=== PATIENT | female | born 1975 | race Caucasian/White ===

== ENCOUNTER 2022-12-09 08:14 | Outpatient (CLI) | payer OTHER, SELFPAY ==
--- NOTE | ~2022-12-09 | MM_ITS ---
EXAMINATION: MM screening dillon BI w twila HISTORY: Screening mammogram. Baseline examination. TECHNIQUE: Craniocaudal and mediolateral oblique 3-D tomosynthesis images were obtained and synthetic 2-D images were generated. CAD analysis was submitted and interpreted. COMPARISON: No prior mammogram is available for comparison at this institution. BREAST PARENCHYMAL COMPOSITION: There are scattered areas of fibroglandular density. FINDINGS: Right breast: Focal asymmetry is suggested in the lower mid right breast. Diagnostic right mammogram is recommended, with ultrasound if required. Left breast: There is no evidence of suspicious mass, calcification, or architectural distortion to s uggest malignancy in the left breast. IMPRESSION: 1. Focal asymmetry in the lower mid right breast 2. Diagnostic right mammogram is recommended, with ultrasound if required BI-RADS Category 0: Incomplete: Needs additional imaging evaluation. Reviewed, dictated and finalized at location A. GENCY ROOM TECH
--- NOTE | 2022-12-09 08:22 | EST_ITS ---
Patient Info Name: Hilary Almanzar Age: 47 years : 1975 Gender: Female Ht: 64 in Wt: 166 lbs BSA: 1.87 m2 HR: 60 bpm BP: 100 / 68 mmHg Heart Rhythm: Sinus Rhythm Exam Date: 12/09/2022 8:31 AM Exam Location: [facility] Stress Patient Status: Outpatient Admit Date: 12/09/2022 Staff Ordering Physician: Radha Little Attending Provider: Evan Castle MD Exercise Technologist: Magali Joya CT Exercise Physician: Marcos Nichole DO Exam Type: CA stress test treadmill Study Info Indications R07.9 - Chest pain, unspecified Summary 1. 1. Negative Wilfrid exercise stress test for ischemic ST changes by ECG criteria. 2. 2. Good functional capacity, achieving 11 METs of workload. 3. 3. Appropriate HR response to exercise. 4. 4. Appropriate HR recovery at 1 minute post exercise. 5. 5. No imaging with stress testing. 6. 6. Patient informed of the above results. Protocol: Wilfrid Stress ECG Details Stage: REST Duration (min): 1 min : 18 sec Speed (mph): 0.0 Grade (%): 0 HR (bpm): 65 SBP (mmHg): 100 DBP (mmHg): 68 METS: --- Stage: REST Duration (min): 4 min : 56 sec Speed (mph): 0.0 Grade (%): 0 HR (bpm): 63 SBP (mmHg): 100 DBP (mmHg): 68 METS: --- Stage: STAGE 1 Duration (min): 1 min : 0 sec Speed (mph): 1.7 Grade (%): 10 HR (bpm): 96 SBP (mmHg): 100 DBP (mmHg): 68 METS: --- Stage: STAGE 1 Duration (min): 2 min : 0 sec Speed (mph): 1.7 Grade (%): 10 HR (bpm): 105 SBP (mmHg): 100 DBP (mmHg): 68 METS: --- Stage: STAGE 1 Duration (min): 3 min : 0 sec Speed (mph): 1.7 Grade (%): 10 HR (bpm): 101 SBP (mmHg): 131 DBP (mmHg): 74 METS: --- Stage: STAGE 2 Duration (min): 1 min : 0 sec Speed (mph): 2.5 Grade (%): 12 HR (bpm): 111 SBP (mmHg): 131 DBP (mmHg): 74 METS: --- Stage: STAGE 2 Duration (min): 2 min : 0 sec Speed (mph): 2.5 Grade (%): 12 HR (bpm): 119 SBP (mmHg): 108 DBP (mmHg): 66 METS: --- Stage: STAGE 2 Duration (min): 3 min : 0 sec Speed (mph): 2.5 Grade (%): 12 HR (bpm): 120 SBP (mmHg): 108 DBP (mmHg): 66 METS: --- Stage: STAGE 3 Duration (min): 1 min : 0 sec Speed (mph): 3.4 Grade (%): 14 HR (bpm): 130 SBP (mmHg): 119 DBP (mmHg): 65 METS: --- Stage: STAGE 3 Duration (min): 2 min : 0 sec Speed (mph): 3.4 Grade (%): 14 HR (bpm): 138 SBP (mmHg): 119 DBP (mmHg): 65 METS: --- Stage: STAGE 3 Duration (min): 3 min : 0 sec Speed (mph): 3.4 Grade (%): 14 HR (bpm): 138 SBP (mmHg): 119 DBP (mmHg): 65 METS: --- Stage: STAGE 4 Duration (min): 0 min : 35 sec Speed (mph): 4.2 Grade (%): 16 HR (bpm): 149 SBP (mmHg): 119 DBP (mmHg): 65 METS: --- Stage: RECOVERY Duration (mi
== END 2022-12-09 08:15 | disposition home or self-care (01) ==
PROVIDERS: PCP Internal Medicine; Visit Provider Obstetrics & Gynecology
DX: Z12.31 Encounter for screening mammogram for malignant neoplasm of breast (principal); R07.9 Chest pain, unspecified; R92.8 Other abnormal and inconclusive findings on diagnostic imaging of breast
CPT/HCPCS: 77063; 77067; 93017

== ENCOUNTER 2023-02-01 12:54 | Outpatient (CLI) | payer OTHER, SELFPAY ==
--- NOTE | ~2023-02-01 | MMUS_ITS ---
EXAMINATION: MM diagnostic dillon RT w twila, US breast RT complete HISTORY: Focal asymmetry reported in lower mid right breast on 12/09/2022 screening mammogram examinati on TECHNIQUE: Additional 3-D tomosynthesis images of the right breast were performed and synthetic 2-D i mages were generated. CAD analysis was submitted and interpreted. High resolution complete right farida st ultrasound examination including all 4 quadrants and subareolar area was performed. COMPARISON: 12/09/2022 bilateral screening mammogram FINDINGS: MAMMOGRAPHIC FINDINGS: No suspicious mass or architectural distortion, malignant calcification, skin thickening or retractio n is detected. ULTRASOUND: No suspicious mass or shadowing, cyst or other sylvian sonographic abnormality of the right breast is detected. IMPRESSION: 1. No mammographic evidence of malignancy 2. Routine annual mammographic screening is recommended BI-RADS Category 1: Negative Reviewed, dictated and finalized at location A. IMPRESSION: 1. No mammographic evidence of malignancy 2. Routine annual mammographic screening is recommended BI-RADS Category 1: Negative
== END 2023-02-01 12:55 | disposition home or self-care (01) ==
LOC: ANHIMG 12:55
PROVIDERS: PCP Internal Medicine; Visit Provider Obstetrics & Gynecology
DX: R92.8 Other abnormal and inconclusive findings on diagnostic imaging of breast (principal)
CPT/HCPCS: 76641; 77061; 77065; G0279

== ENCOUNTER 2025-01-19 08:03 | Outpatient (CLI) | payer BC, SELFPAY ==
--- NOTE | ~2025-01-19 | US_ITS ---
Limited Abdominal Sonogram: Real-time sonographic imaging of the right upper quadrant was performed. Clinical History: Abnormal serum enzyme levels Findings: The liver appears echogenic with no evidence of mass lesion or bile duct dilatation. Main portal vein demonstrates normal direction of flow. The gallbladder is well distended, and appears nor mal with no evidence of gallstone or wall thickening. The common bile duct measures 4 mm. The visual ized pancreas, aorta, and IVC are unremarkable. Impression: Diffuse fatty infiltration of liver. Reviewed, dictated and finalized at location M. Impression: Diffuse fatty infiltration of liver.
--- OUTSIDE RECORDS SUMMARY | 2025-01-19 08:06 | XMS_ITS | Data Portability ---
Author Organization [place] - [facility] [email or web address], Main Office Address [address] [place] [address] Assessment Encounter Date Assessment Date Assessment LastModified by Organization Details LastModified Time 01/13/2024 01/13/2024 Pt has no prior diagnosis [email or web address] Not available 01/13/2024 11:53:40 Plan of Treatment Reminders Order Date Submit Date Provider Last Modified By Organization Details Last Modified Time Details Appointments None recorded. Lab lipid panel, serum 2023 024 llalor Not available 4 16:54:55 CMP, serum or plasma 2023 024 llalor Not available 4 16:54:56 glycohemogl obin, total, blood 2023 024 llalor Not available 4 16:54:56 CBC 2023 024 llalor Not available 4 16:54:56 TSH, serum, reflex free T4 2023 024 llalor Not available 4 16:54:56 HbA1c (hemoglobin A1c), blood 2023 024 llalor Not available 4 16:54:56 Referral None recorded. Procedures colonoscopy screening (PROC) 2023 024 [email or web address] 256 Melodie Patterson MD, [address] [place] [address], [address], 4 09:17:27 Surgeries None recorded. Imaging None recorded. Medication Orders None recorded. Patient TargetsNo targets recorded. Patient InstructionsNo instructions recorded. Reason for Referral None Reported. Results Created Date Observation Date Name Description Value Unit Range Abnormal Flag Note LastModifiedBy Organization Detail LastModifiedTime 01/20/20 24 01/20/2024 LIPID PANEL , STAND MABLE cholesterol, total 251 mg/dL <200 high Not Available [address] [address] [place], [address], 01/20/2024 23:42:13 01/20/20 24 01/20/2024 LIPID PANEL , STAND MABLE HDL cholesterol 57 mg/dL > or = 50 normal Not Available [address] [address] [place], [address], 01/20/2024 23:42:13 01/20/20 24 01/20/2024 LIPID PANEL , STAND MABLE triglyceride s 164 mg/dL <150 high Not Available [address], [address], 01/20/2024 23:42:13 01/20/20 24 01/20/2024 LIPID PANEL , STAND MABLE LDL-choleste rol 163 mg/dL _(rosa c) high Refer ence range : <100 Nazanin able range <100 mg/dL for prima ry preve ntion ; <70 mg/dL for patie nts with CHD or diabe tic patie nts with > or = 2 CHD risk facto rs. LDL-C is now calcu lated using the Jaqueline n-Hop kins marileeu kiera n, which is a valid ated novel zekeo d jackie wen r accur acy than the Fried vy equat ion in the estim ation of LDL-C . Jaqueline mills SS et al. NELLY. 2013; 310(1 9): 2061- 2068 (http ://ed ucati on.Qu Domenico Yapta. com/f aq/FA Q164) Not Available [address] [address] [place], [address], 01/20/2024 23:42:13 01/20/20 24 01/20/2024 LIPID PANEL , STAND MABLE chol/HDLC ratio 4.4 (calc ) <5.0 normal Not Available [address] [place], [address], 01/20/2024 23:42:13 01/20/20 24 01/20/2024 LIPID PANEL , STAND MABLE non HDL cholesterol 194 mg/dL _(rosa c) <130 high For patie nts with diabe jack plus 1 major ASCVD risk facto r, treat ing to a non-H DL-C goal of <100 mg/dL (LDL- C of <70 mg/dL ) is consi dered a thera peuti c optio n. Not Available [address] [address] [place], [address], 01/20/2024 23:42:13 01/20/20 24 01/20/2024 COMPR EHENS ELEUTERIO METAB OLIC PANEL glucose 100 mg/dL 65-99 high Fasti ng refer ence inter meghan For someo ne witho ut known diabe jack, a gluco se value betwe en 100 and 125 mg/dL is consi stent with predi abete s and shoul d be confi rmed with a follo w-up test. Not Available [address] [address] , [place], [address], 01/20/2024 23:42:14 01/20/20 24 01/20/2024 COMPR EHENS ELEUTERIO METAB OLIC PANEL urea nitrogen (BUN) 18 mg/dL 7-25 normal Not Available [address] [address] [place], [address], 01/20/2024 23:42:14 01/20/20 24 01/20/2024 COMPR EHENS ELEUTERIO METAB OLIC PANEL creatinine 0.78 mg/dL 0.50-0 .99 normal Not Available [address] [address] [place], [address], 01/20/2024 23:42:14 01/20/20 24 01/20/2024 COMPR EHENS ELEUTERIO METAB OLIC PANEL eGFR 93 mL/mi n/1.7 3m2 > or = 60 normal Not Available [facility] [address] [place], [address], 01/20/2024 23:42:14 01/20/20 24 01/20/2024 COMPR EHENS ELEUTERIO METAB OLIC PANEL BUN/creatini ne ratio SEE NOTE: (calc ) 6-22 Not Repor bubba: BUN and Creat inine are withi n refer ence range . Not Available [address], [address], 01/20/2024 23:42:14 01/20/20 24 01/20/2024 COMPR EHENS ELEUTERIO METAB OLIC PANEL sodium 136 mmol/ L 135-14 6 normal Not Available [address] [address] [facility] [place], [address], 01/20/2024 23:42:14 01/20/20 24 01/20/2024 COMPR EHENS ELEUTERIO METAB OLIC PANEL potassium 4.3 mmol/ L 3.5-5. 3 normal Not Available [address] [address] , [place], [address], 01/20/2024 23:42:14 01/20/20 24 01/20/2024 COMPR EHENS ELEUTERIO METAB OLIC PANEL chloride 101 mmol/ L 98-110 normal Not Available [address] [address] [place], [address], 01/20/2024 23:42:14 01/20/20 24 01/20/2024 COMPR EHENS ELEUTERIO METAB OLIC PANEL carbon dioxide 29 mmol/ L 20-32 normal Not Available [address] [address] [place], [address], 01/20/2024 23:42:14 01/20/20 24 01/20/2024 COMPR EHENS ELEUTERIO METAB OLIC PANEL calcium 9.3 mg/dL 8.6-10 .2 normal Not Available [address] [address] [place], [address], 01/20/2024 23:42:14 01/20/20 24 01/20/2024 COMPR EHENS ELEUTERIO METAB OLIC PANEL protein, total 7.2 g/dL 6.1-8. 1 normal Not Available [address], [address], 01/20/2024 23:42:14 01/20/20 24 01/20/2024 COMPR EHENS ELEUTERIO METAB OLIC PANEL albumin 4.4 g/dL 3.6-5. 1 normal Not Available [address], [address], 01/20/2024 23:42:14 01/20/20 24 01/20/2024 COMPR EHENS ELEUTERIO METAB OLIC PANEL globulin 2.8 g/dL_ (calc ) 1.9-3. 7 normal Not Available [address], [address], 01/20/2024 23:42:14 01/20/20 24 01/20/2024 COMPR EHENS ELEUTERIO METAB OLIC PANEL albumin/glob ulin ratio 1.6 (calc ) 1.0-2. 5 normal Not Available [address], [address], 01/20/2024 23:42:14 01/20/20 24 01/20/2024 COMPR EHENS ELEUTERIO METAB OLIC PANEL bilirubin, total 0.4 mg/dL 0.2-1. 2 normal Not Available [address], [address], 01/20/2024 23:42:14 01/20/20 24 01/20/2024 COMPR EHENS ELEUTERIO METAB OLIC PANEL alkaline phosphatase 65 U/L 31-125 normal Not Available [address] [address] [place], [address], 01/20/2024 23:42:14 01/20/20 24 01/20/2024 COMPR EHENS ELEUTERIO METAB OLIC PANEL AST 41 U/L 10-35 high Not Available [address], [address], 01/20/2024 23:42:14 01/20/20 24 01/20/2024 COMPR EHENS ELEUTERIO METAB OLIC PANEL ALT 67 U/L 6-29 high Not Available [address], [address], 01/20/2024 23:42:14 01/20/20 24 01/20/2024 CBC (INCL UDES DIFF/ PLT) white blood cell count 4.8 thous and/u L 3.8-10 .8 normal Not Available [address], [address], 01/20/2024 23:42:15 01/20/20 24 01/20/2024 CBC (INCL UDES DIFF/ PLT) red blood cell count 4.37 regino on/uL 3.80-5 .10 normal Not Available [address], [address], 01/20/2024 23:42:15 01/20/20 24 01/20/2024 CBC (INCL UDES DIFF/ PLT) hemoglobin 14.2 g/dL 11.7-1 5.5 normal Not Available [address], [address], 01/20/2024 23:42:15 01/20/20 24 01/20/2024 CBC (INCL UDES DIFF/ PLT) hematocrit 42.9 % 35.0-4 5.0 normal Not Available [address], [address], 01/20/2024 23:42:15 01/20/20 24 01/20/2024 CBC (INCL UDES DIFF/ PLT) MCV 98.2 fL 80.0-1 00.0 normal Not Available [address] [place], [address], 01/20/2024 23:42:15 01/20/20 24 01/20/2024 CBC (INCL UDES DIFF/ PLT) MCH 32.5 pg 27.0-3 3.0 normal Not Available [facility] [address], [address], 01/20/2024 23:42:15 01/20/20 24 01/20/2024 CBC (INCL UDES DIFF/ PLT) MCHC 33.1 g/dL 32.0-3 6.0 normal Not Available [facility] [address], [address], 01/20/2024 23:42:15 01/20/20 24 01/20/2024 CBC (INCL UDES DIFF/ PLT) RDW 12.9 % 11.0-1 5.0 normal Not Available [address], [address], 01/20/2024 23:42:15 01/20/20 24 01/20/2024 CBC (INCL UDES DIFF/ PLT) platelet count 254 thous and/u L 140-40 0 normal Not Available [address], [address], 01/20/2024 23:42:15 01/20/20 24 01/20/2024 CBC (INCL UDES DIFF/ PLT) MPV 10.6 fL 7.5-12 .5 normal Not Available [facility] [address], [address], 01/20/2024 23:42:15 01/20/20 24 01/20/2024 CBC (INCL UDES DIFF/ PLT) absolute neutrophils 3014 cells /uL 1500-7 800 normal Not Available [facility] [address], [address], 01/20/2024 23:42:15 01/20/20 24 01/20/2024 CBC (INCL UDES DIFF/ PLT) absolute lymphocytes 1099 cells /uL 850-39 00 normal Not Available [address], [address], 01/20/2024 23:42:15 01/20/20 24 01/20/2024 CBC (INCL UDES DIFF/ PLT) absolute monocytes 427 cells /uL 200-95 0 normal Not Available [address], [address], 01/20/2024 23:42:15 01/20/20 24 01/20/2024 CBC (INCL UDES DIFF/ PLT) absolute eosinophils 221 cells /uL 15-500 normal Not Available [address], [address], 01/20/2024 23:42:15 01/20/20 24 01/20/2024 CBC (INCL UDES DIFF/ PLT) absolute basophils 38 cells /uL 0-200 normal Not Available [address], [address], 01/20/2024 23:42:15 01/20/20 24 01/20/2024 CBC (INCL UDES DIFF/ PLT) neutrophils 62.8 % normal Not Available [address], [address], 01/20/2024 23:42:15 01/20/20 24 01/20/2024 CBC (INCL UDES DIFF/ PLT) lymphocytes 22.9 % normal Not Available [facility] [address], [address], 01/20/2024 23:42:15 01/20/20 24 01/20/2024 CBC (INCL UDES DIFF/ PLT) monocytes 8.9 % normal Not Available [facility] [address], [address], 01/20/2024 23:42:15 01/20/20 24 01/20/2024 CBC (INCL UDES DIFF/ PLT) eosinophils 4.6 % normal Not Available [facility] [address] [place], [address], 01/20/2024 23:42:15 01/20/20 24 01/20/2024 CBC (INCL UDES DIFF/ PLT) basophils 0.8 % normal Not Available [facility] [address] [place], [address], 01/20/2024 23:42:15 01/20/20 24 01/20/2024 TSH TSH 1.45 mIU/L normal Refer ence Range > or = 20 Years 0.40- 4.50 Pregn celestine Range s First trime ster 0.26- 2.66 Secon d trime ster 0.55- 2.73 Third trime ster 0.43- 2.91 Not Available [facility] [address] [place], [address], 01/20/2024 23:42:15 01/20/20 24 01/20/2024 HEMOG LOBIN A1C hemoglobin A1C 5.5 %_of_ total _HGB <5.7 normal For the purpo se of screphilip hayes for the prese nce of diabe jack: <5.7% Consi stent with the absen ce of diabe jack 5.7-6 .4% Consi stent with incre ased risk for diabe jack (pred iabet es) > or =6.5% Consi stent with diabe jack This assay resul t is consi stent with a decre ased risk of diabe jack. Curre ntly, no conse nsus exist s regpk gaston use of hemog lobin A1c for diagn osis of diabe jack in child lilibeth. Accor ding to Ameri can Diabe jack Assoc iatio n (ADA) guide lines , hemog lobin A1c <7.0% repre sents optim al contr ol in non-p regna nt diabe tic patie nts. Diffe rent metri cs may apply to speci fic patie nt popul ation s. Stand ards of Medic al Care in Diabe jack(A DA). This test was perfo rmed on the [facility] c503 platf orm. Effec tive , a aggie palacios in test platf orms from the [facility] Archi tect to the [place] [facility] c503 may have shift ed HbA1c resul ts bianka red to histo rical resul ts. Based on labor atory valid ation testi ng condu cted at [employer] , the [facility] platf orm relat eleuterio to the [facility] platf orm had an avera ge incre ase in HbA1c value of < or = 0.3%. This diffe rence is withi n accep bubba varia bilit y estab lishe d by [facility]co hemog lobin Stand ardiz ation Progr am. Note that not all indiv idual s will have had a shift in their resul ts and direc t bianka rison s betwe en histo rical and curre nt resul ts for testi ng condu cted on diffe rent platf orms is not recom deanna d. Not Available [facility] [address] [place], [address], 01/20/2024 23:42:16 Result Notes None recorded. Medical Equipment None Reported. Allergies Allergen ID Allergen Name Allergen Category Reaction Reaction Severity Criticality Documentation Date Start Date Code Code System Note Provider Name and Address Organization Details Recorded Time 36630 Product containin g penicilli n (product) medicatio n hives Not available Not available 01/13/2024 19434 8001 SNOMED Li Barnett RN null, [place] [facility] [facility] [email or web address] 11:36:49 Vitals Date Recorded Body weight Body mass index (BMI) Body height Body temperature Heart rate Oxygen saturation Oxygen saturation in Arterial blood by Pulse oximetry Systolic blood pressure Diastolic blood pressure Provider Name and Address Organization Details Last Updated DateTime 4 70133.8 5 g 30.4 kg/m2 162.56 cm 97.9 [degF] 57 /min 98 % 98 % 114 mm[Hg] 68 mm[Hg] Li Barnett RN [facility] [email or web address] 11:39:24 Social History None recorded. Functional Status None recorded. Mental Status None recorded. Family History Relationship Description Onset Age of this Age Resolved Age Notes LastModified by Organization Details LastModified Time Maternal Grandfather Diabetes mellitus [email or web address] Not available 2023 11:37:21 Medical History No medical history recorded. Gynecological HistoryNo gynecological history recorded. Obstetrics History GPAL:G 0 P 0 0 0 0 Past Encounters Encounter ID Performer Location Encounter Start Date Encounter Closed Date Diagnosis/Indication Diagnosis SNOMED-CT Code Diagnosis ICD10 Code Diagnosis Note [id number] TOMASZ Willett [facility] Primary Care [facility] [address] [facility] [address] [place] [address] 01/13/2024 11:29:26 01/13/2024 12:07:13 Adult health examination 315929168 Z00.00 Encouraged fresh fruits and veggies-me d intake of veggie, low fruitIncre ase daily water intake-1/2 gallon/day , coffee, wine, teaEncoura ge 30 mins of daily exercise-w alks for exercise, does go to gymColonos copy-order edWell woman exams-last pap was 1 and 1/2 years ago, mammogram last yearLDCT-n ot a smoker, drinks occ/daily- declines flu shot-visio n/hearing have both declined-h as already f/u with audiologis t in the past-labs obtained Screening for malignant neoplasm of colon 028149077 Z12.11 Health Concerns Section Related Observation LastModified by Organization Detai ls LastModified Time None Recorded Concern Status LastModified by Organization Details LastModified Time None Recorded Advance Directives Directive None Recorded Payers Encounter Date Sequence Insurance Name Policy Number Policy Dickey Covered Member ID Dickey Member ID Guarantor Name 01/13/2024 1 [employer]: (PPO) [id number] 2 Hilary Almanzar [id number] 65 Hilary Almanzar Notes Date Note Type Note Provider Name and Address Organization Details Recorded Time 01/13/2024 text/html Pt is here for annual exam and to establish care TOMASZ Willett [address] [facility], [facility] [address], [place], [address], [facility] 01/13/2024 11:58:55 OBGyn Episode No OBEpisode recorded.
--- OUTSIDE RECORDS SUMMARY | 2025-01-19 08:06 | XMS_ITS | Clinical Summary ---
Author Organization [facility] [employer] Address [address] [place] [address] Care Team Providers Care Principal Investigator Name Role Phone Unavailable Primary Care Provider Unavailabl e Source Comments [facility] [employer],non-owned Affiliates and Associated Physician Practices is amultiple site organization consisting of ambulatory clinics and hospital sitesin [place], [place], [place] and [place]. This disclosure is being madepursuant to the Care Everywhere program and may not contain all information available regarding this patient. Last updated 18.[facility] [employer] Allergies Active Allergy Reactions Criticality Noted Date Comments Penicillins 08/21/2008 Medications * Be aware that medications may not be up to date on this document. Alwaysverify current medications with the patient. Medication Sig Dispensed Refills Start Date End Date Status metroNIDAZOLE (FLAGYL) 500 MG tabletIndications:BV (bacterial vaginosis) Take 1 Tab by mouth 2 times daily. 14 Tab 0 04/21/2011 Active etonogestrel-ethinyl estradiol (NUVARING) 0.12-0.015 MG/24HR vaginal ring Insert 1 Device into the vagina every 21 days. Apply vaginally for 21 -= 30 days then take out for 7 days before placing another one. 1 Each 11 06/30/2011 Active Active Problems Problem Noted Date Diagnosed Date Other nonspecific abnormal finding 08/21/2008 Immunizations Name Administration Dates Next Due INFLUENZA VACCINE, QUADR. (F LUZONE; FLULAVAL; FLUARIX; AFLURIA QUADRIVALENT; 6MO+), 0.5 ML (IIV4) 08/06/2019 Social History Tobacco Use Types Packs/Day Years Used Date Smoking Tobacco: Some Days Alcohol Use Standard Drinks/Week Comments Yes 0 (1 standard drink = 0.6 oz pur e alcohol) occas Sex and Gender Information Value Date Recorded Sex Assigned at Not on file Gender Identity Not on file Sexual Orientation Not on file Last Filed Vital Signs Vital Sign Reading Time Taken Comments Blood Pressure 118/70 04/21/2011 8:12 AM CDT Pulse - - Temperature - - Respiratory Rate - - Oxygen Saturation - - Inhaled Oxygen Concentration - - Weight 56.2 kg (124 lb) 04/21/2011 8:12 AM CDT Height - - Body Mass Index - - Plan of Treatment Health Maintenance Due Date Last Done Comments COLOGUARD (AGES 45-75) - COL ON CA SCREENING 1975 COLON MONITORING 1975 COLONOSCOPY - COLON CA SCREENING 1975 CT COLONOGRAPHY - COLON CA SCREENING 1975 Colorectal Cancer Screening 1975 FIT - COLON CA SCREENING 1975 FLEX SIG - COLON CA SCREENING 1975 LIPID TESTING 1975 MAMMOGRAM 1975 HEPATITIS C SCREENING 01/04/1993 DTAP/TDAP/TD VACCINES (1 - Tdap) 1994 HEPATITIS B VACCINE (1 of 3 - 19+ 3-dose series) 1994 PNEUMOCOCCAL VACCINE (1 of 2 - PCV) 1994 PAP SMEAR 04/21/2014 04/21/2011, 09/27/2009, 08/21/2008 COVID-19 VACCINE (1 - 2023-2 5 season) 2024 DEPRESSION SCREENING 10/11/2024 PNEUMOCOCCAL VACCINE 50+ (1 of 1 - PCV) 2025 ZOSTER VACCINE (1 of 2) 2025 INFLUENZA VACCINE (Season Ended) 2025 08/06/2019 HIV SCREENING Completed 04/21/2011 HIB VACCINE Aged Out No longer eligi ble based on patient's age to complete this topic HPV VACCINE Aged Out No longer eligi ble based on patient's age to complete this topic MENINGOCOCCAL (Group B) VACCINE SHARED DECISION-MAKING Aged Out No longer eligible based on patient's age to complete this topic MENINGOCOCCAL GROUPS A/C/Y/W VACCINE Aged Out No longer eligible b ased on patient's age to complete this topic Procedures Procedure Name Priority Date/Time Associated Diagnosis Comments HIV-1 HIV-2 ANTIBODY Routine 04/21/2011 8:41 AM CDT Screening for STDs (sexually transmitted diseases) PAP LB CT+GC RFLX HPV HR IF ASCU Routine 04/21/2011 8:21 AM CDT Well woman exam with routine gynecological exam from Last 3 Months or Most Recently Relevant to Health Maintenance Results * HIV-1 HIV-2 ANTIBODY (04/21/2011 8:41 AM CDT) HIV-1 Antibody O.D. Ratio <1.00 <1.00 [facility] ACCOUNT BILL Comment:Index Value: Specime n reactivity relative to the negative cutoff. HIV-1/HIV-2 Non Reactive Non Reactive [facility] ACCOUNT BILL BLOOD SPECIMEN / Unknown 04/21/2011 8:41 AM CDT 04/21/2011 5:00 PM CDT Narrative Resulting Agency Comment [facility] [id number] Leanne Zepeda MD LAB - CHEMISTRY ORDERABLES [facility] ACCOUNT BILL * PAP SMEAR LB CT+GC RFLX HPV ASCU (PO REF) (04/21/2011 8:21 AM CDT) Diagnosis [facility] INSURANCE BILL Comment:NEGATIVE FOR INTRAEP ITHELIAL LESION AND MALIGNANCY. Specimen Adequacy [facility] INSURANCE BILL Comment: Satisfactory for evaluation. Endocervical and/or squamous metaplastic cells (endocervical component) are present. Clinician Provided ICD9 [facility] INSURANCE BILL Comment: V72.31 ; Routine gynecological examination V74.5 ; Screening examination for venereal disease Performed by [facility] INSURANCE BILL Comment:Stephanie Sepulveda, Cyto technologist (ASCP) Comment . [facility] INSURANCE BILL Note [facility] INSURANCE BILL Comment: The Pap smear is a screening test designed to aid in the detection of premalignant and malignant conditions of the uterine cervix. It is not a diagnostic procedure and should not be used as the sole means of detecting cervical cancer. Both false-positive and false-negative reports do occur. . Reflex [facility] INSURANCE BILL Comment: The HPV DNA reflex criteria were not met with this specimen result therefore, no HPV testing was performed. . Chlamydia VIVIANA Thin Prep Negative Negative [facility] INSURANCE BILL GC DNA Probe Negative Negative [facility] INSURANCE BILL MICROSCOPIC CYTOLOGIC EXAMINATION OF SMEAR OF SPECIMEN FROM FEMALE GENITAL TRACT PREPARED USING PAPANICOLAOU TECHNIQUE / Unknown 04/21/2011 8:21 AM CDT 04/21/2011 10:50 PM CDT Narrative [facility] INSURANCE BILL - 04/27/2011 2:07 PM CDT No. of containers..01 [facility] Collection Vial Resulting Agency Comment [facility] [address] W [id number] Leanne Zepeda MD LAB - PATHOLOGY/ CYTOLOGY ORDERABLES [facility] INSURANCE BILL from Last 3 Months or Most Recently Relevant to Health Maintenance HILARY GIFFORD Personal/Family 1975 [address], [place] [address]
== END 2025-01-19 08:04 | disposition home or self-care (01) ==
PROVIDERS: PCP Internal Medicine; Visit Provider Clinical Nurse Specialist
DX: R74.8 Abnormal levels of other serum enzymes (principal); K76.0 Fatty (change of) liver, not elsewhere classified
CPT/HCPCS: 76705

== ENCOUNTER 2025-05-08 09:09 | Outpatient (CLI) | payer BC, SELFPAY ==
--- NOTE | ~2025-05-08 | MM_ITS ---
EXAMINATION: MM screening dillon BI w twila HISTORY: Screening TECHNIQUE: Craniocaudal and mediolateral oblique 3-D tomosynthesis images were obtained and synthetic 2-D images were generated. CAD analysis was submitted and interpreted. COMPARISON: Comparison to multiple prior studies sequentially, with oldest reviewed study dated 10/2022. BREAST PARENCHYMAL COMPOSITION: There are scattered areas of fibroglandular density. FINDINGS: There is no evidence of suspicious mass, calcification, or architectural distortion to sugg est malignancy in either breast. There has been no suspicious interval change. IMPRESSION: 1. No mammographic evidence of malignancy. 2. Recommend routine screening mammography in one year. BI-RADS Category 1: Negative Reviewed, dictated and finalized at location []
--- OUTSIDE RECORDS SUMMARY | 2025-05-08 09:19 | XMS_ITS | Data Portability ---
Author Organization [facility] Main Office Address [address] [place] [address] Assessment Encounter Date Assessment Date Assessment LastModified [...] 2023 024 [email or web address] 256 Melodie Patterson MD, [address] [place] [address], [address], 4 09:17:27 Surgeries None recorded. Imaging None recorded. Medication Orders None recorded. Patient TargetsNo targets recorded. Patient InstructionsNo instructions recorded. Reason for Referral None Reported. Results Created Date Observation Date Name Description Value Unit Range Abnormal Flag Note LastModifiedBy Organization Detail LastModifiedTime 01/20/20 24 01/20/2024 LIPID PANEL , STAND MABLE cholesterol, total 251 mg/dL <200 high Not Available [address] [address] [place], [address], 01/20/2024 23:42:13 01/20/20 24 01/20/2024 LIPID PANEL , STAND MABLE HDL cholesterol 57 mg/dL > or = 50 normal Not Available [address] [address] [place], [address], 01/20/2024 23:42:13 01/20/20 24 01/20/2024 LIPID PANEL , STAND MABLE triglyceride s 164 mg/dL <150 high Not Available [address] [address] [place], [address], 01/20/2024 23:42:13 01/20/20 24 01/20/2024 LIPID PANEL [...] n, which is a valid ated novel delphine wen r accur acy than the Fried vy equat ion in the estim ation of LDL-C . Jaqueline mills SS et al. NELLY. 2013; 310(1 9): 2061- 2068 (http ://ed ucati on.Qu Domenico Polleverywheres. com/f aq/FA Q164) Not Available [facility] [address] [address] [address] , [place], [address], 01/20/2024 23:42:13 01/20/20 24 01/20/2024 LIPID PANEL , STAND MABLE chol/HDLC ratio 4.4 (calc ) <5.0 normal Not Available [facility] [place] [address] [place], [address], 01/20/2024 23:42:13 01/20/20 24 01/20/2024 LIPID PANEL , STAND MABEL non HDL cholesterol 194 mg/dL _(rosa c) <130 high For patie nts with diabe jack plus 1 major ASCVD risk facto r, treat ing to a non-H DL-C goal of <100 mg/dL (LDL- C of <70 mg/dL ) is consi dered a thera peuti c optio n. Not Available [facility] [address] [address] [place], [address], 01/20/2024 23:42:13 01/20/20 24 01/20/2024 COMPR EHENS ELEUTERIO METAB OLIC PANEL glucose 100 mg/dL 65-99 high Fasti ng refer ence inter meghan For someo ne witho ut known diabe jack, a gluco se value betwe en 100 and 125 mg/dL is consi stent with predi abete s and shoul d be confi rmed with a follo w-up test. Not Available [address] [address] [address] , [place], [address], 01/20/2024 23:42:14 01/20/20 24 01/20/2024 COMPR EHENS ELEUTERIO METAB OLIC PANEL urea nitrogen (BUN) 18 mg/dL 7-25 normal Not Available [facility] [address] [address] [place], [address], 01/20/2024 23:42:14 01/20/20 24 01/20/2024 COMPR EHENS ELEUTERIO METAB OLIC PANEL creatinine 0.78 mg/dL 0.50-0 .99 normal Not Available [facility] [address] [address] [place], [address], 01/20/2024 23:42:14 01/20/20 24 01/20/2024 COMPR EHENS ELEUTERIO METAB OLIC PANEL eGFR 93 mL/mi n/1.7 3m2 > or = 60 normal Not Available [address] [address] [place], [address], 01/20/2024 23:42:14 01/20/20 24 01/20/2024 COMPR EHENS ELEUTERIO METAB OLIC PANEL BUN/creatini ne ratio SEE NOTE: (calc ) 6-22 Not Repor bubba: BUN and Creat inine are withi n refer ence range . Not Available [address], [address], 01/20/2024 23:42:14 01/20/20 24 01/20/2024 COMPR EHENS ELEUTERIO METAB OLIC PANEL sodium 136 mmol/ L 135-14 6 normal Not Available [address] [address] [place], [address], 01/20/2024 23:42:14 01/20/20 24 01/20/2024 COMPR EHENS ELEUTERIO METAB OLIC PANEL potassium 4.3 mmol/ L 3.5-5. 3 normal Not Available [address] [address] [place], [address], 01/20/2024 23:42:14 01/20/20 24 01/20/2024 COMPR EHENS ELEUTERIO METAB OLIC PANEL chloride 101 mmol/ L 98-110 normal Not Available [address], [address], 01/20/2024 23:42:14 01/20/20 24 01/20/2024 COMPR EHENS ELEUTERIO METAB OLIC PANEL carbon dioxide 29 mmol/ L 20-32 normal Not Available [address], [address], 01/20/2024 23:42:14 01/20/20 24 01/20/2024 COMPR EHENS ELEUTERIO METAB OLIC PANEL calcium 9.3 mg/dL 8.6-10 .2 normal Not Available [address], [address], 01/20/2024 23:42:14 01/20/20 24 01/20/2024 COMPR EHENS ELEUTERIO METAB OLIC PANEL protein, total 7.2 g/dL 6.1-8. 1 normal Not Available [address], [address], 01/20/2024 23:42:14 01/20/20 24 01/20/2024 COMPR EHENS ELEUTERIO METAB OLIC PANEL albumin 4.4 g/dL 3.6-5. 1 normal Not Available [address], [address], 01/20/2024 23:42:14 01/20/20 24 01/20/2024 COMPR EHENS ELEUTERIO METAB OLIC PANEL globulin 2.8 g/dL_ (calc ) 1.9-3. 7 normal Not Available [address], [address], 01/20/2024 23:42:14 01/20/20 24 01/20/2024 COMPR EHENS ELEUTERIO METAB OLIC PANEL albumin/glob ulin ratio 1.6 (calc ) 1.0-2. 5 normal Not Available [address], [address], 01/20/2024 23:42:14 01/20/20 24 01/20/2024 COMPR EHENS ELEUTERIO METAB OLIC PANEL bilirubin, total 0.4 mg/dL 0.2-1. 2 normal Not Available [address], [address], 01/20/2024 23:42:14 01/20/20 24 01/20/2024 COMPR EHENS ELEUTERIO METAB OLIC PANEL alkaline phosphatase 65 U/L 31-125 normal Not Available [address], [address], 01/20/2024 23:42:14 01/20/20 24 01/20/2024 COMPR EHENS ELEUTERIO METAB OLIC PANEL AST 41 U/L 10-35 high Not Available [address], [address], 01/20/2024 23:42:14 01/20/20 24 01/20/2024 COMPR EHENS ELEUTERIO METAB OLIC PANEL ALT 67 U/L 6-29 high Not Available [address], [address], 01/20/2024 23:42:14 01/20/20 24 01/20/2024 CBC (INCL UDES DIFF/ PLT) white blood cell count 4.8 thous and/u L 3.8-10 .8 normal Not Available [address], [address], 01/20/2024 23:42:15 01/20/20 24 01/20/2024 CBC (INCL UDES DIFF/ PLT) red blood cell count 4.37 regino on/uL 3.80-5 .10 normal Not Available [address], [address], 01/20/2024 23:42:15 01/20/20 24 01/20/2024 CBC (INCL UDES DIFF/ PLT) hemoglobin 14.2 g/dL 11.7-1 5.5 normal Not Available [address], [address], 01/20/2024 23:42:15 01/20/20 24 01/20/2024 CBC (INCL UDES DIFF/ PLT) hematocrit 42.9 % 35.0-4 5.0 normal Not Available [address], [address], 01/20/2024 23:42:15 01/20/20 24 01/20/2024 CBC (INCL UDES DIFF/ PLT) MCV 98.2 fL 80.0-1 00.0 normal Not Available [address], [address], 01/20/2024 23:42:15 01/20/20 24 01/20/2024 CBC (INCL UDES DIFF/ PLT) MCH 32.5 pg 27.0-3 3.0 normal Not Available [address], [address], 01/20/2024 23:42:15 01/20/20 24 01/20/2024 CBC (INCL UDES DIFF/ PLT) MCHC 33.1 g/dL 32.0-3 6.0 normal Not Available [address], [address], 01/20/2024 23:42:15 01/20/20 24 01/20/2024 CBC (INCL UDES DIFF/ PLT) RDW 12.9 % 11.0-1 5.0 normal Not Available [address], [address], 01/20/2024 23:42:15 01/20/20 24 01/20/2024 CBC (INCL UDES DIFF/ PLT) platelet count 254 thous and/u L 140-40 0 normal Not Available [address], [address], 01/20/2024 23:42:15 01/20/20 24 01/20/2024 CBC (INCL UDES DIFF/ PLT) MPV 10.6 fL 7.5-12 .5 normal Not Available [address], [address], 01/20/2024 23:42:15 01/20/20 24 01/20/2024 CBC (INCL UDES DIFF/ PLT) absolute neutrophils 3014 cells /uL 1500-7 800 normal Not Available [address], [address], 01/20/2024 23:42:15 01/20/20 24 01/20/2024 CBC (INCL UDES DIFF/ PLT) absolute lymphocytes 1099 cells /uL 850-39 00 normal Not Available [address], [address], 01/20/2024 23:42:15 01/20/20 24 01/20/2024 CBC (INCL UDES DIFF/ PLT) absolute monocytes 427 cells /uL 200-95 0 normal Not Available [address], [address], 01/20/2024 23:42:15 01/20/20 24 01/20/2024 CBC (INCL UDES DIFF/ PLT) absolute eosinophils 221 cells /uL 15-500 normal Not Available [address], [address], 01/20/2024 23:42:15 01/20/20 24 01/20/2024 CBC (INCL UDES DIFF/ PLT) absolute basophils 38 cells /uL 0-200 normal Not Available [address], [address], 01/20/2024 23:42:15 01/20/20 24 01/20/2024 CBC (INCL UDES DIFF/ PLT) neutrophils 62.8 % normal Not Available [address], [address], 01/20/2024 23:42:15 01/20/20 24 01/20/2024 CBC (INCL UDES DIFF/ PLT) lymphocytes 22.9 % normal Not Available [address], [address], 01/20/2024 23:42:15 01/20/20 24 01/20/2024 CBC (INCL UDES DIFF/ PLT) monocytes 8.9 % normal Not Available [address], [address], 01/20/2024 23:42:15 01/20/20 24 01/20/2024 CBC (INCL UDES DIFF/ PLT) eosinophils 4.6 % normal Not Available [address], [address], 01/20/2024 23:42:15 01/20/20 24 01/20/2024 CBC (INCL UDES DIFF/ PLT) basophils 0.8 % normal Not Available [address], [address], 01/20/2024 23:42:15 01/20/20 24 01/20/2024 TSH TSH 1.45 mIU/L normal Refer ence Range > or = 20 Years 0.40- 4.50 Pregn celestine Range s First trime ster 0.26- 2.66 Secon d trime ster 0.55- 2.73 Third trime ster 0.43- 2.91 Not Available [address], [address], 01/20/2024 23:42:15 01/20/20 24 01/20/2024 HEMOG LOBIN [...] Curre ntly, no conse nsus exist s arline gaston use of hemog lobin A1c for [...] valid ation testi ng condu [facility]ted [facility] relat eleuterio to the [facility] had an avera ge incre ase in HbA1c value of < or = 0.3%. This diffe rence is withi n accep bubba varia bilit y estab lishe d by the [facility] hemog lobin Stand ardiz ation Progr am. Note that not all indiv idual s will have had a shift in their resul ts and direc t bianka rison s betwe en histo rical and curre nt resul ts for testi ng condu cted on diffe rent platf orms is not recom deanna d. Not Available [facility] [address] [place], [address], 01/20/2024 23:42:16 Result Notes None recorded. Medical Equipment None Reported. Allergies Allergen ID Allergen Name Allergen Category Reaction Reaction Severity Criticality Documentation Date Start Date Code Code System Note Provider Name and Address Organization Details Recorded Time 25689 Product containin g penicilli n (product) medicatio n hives Not available Not available 01/13/2024 67366 8001 SNOMED Li Barnett RN null, [facility] 4 11:36:49 Vitals Date Recorded Body weight Body mass index (BMI) Body height Body temperature Heart rate Oxygen saturation Oxygen saturation in Arterial blood by Pulse oximetry Systolic And Diastolic Provider Name and Address Organization Details Last Updated DateTime 4 75527.8 5 g 30.4 kg/m2 162.56 cm 97.9 [degF] 57 /min 98 % 98 % 114/68 mm[Hg] Li Barnett RN [facility] 4 11:39:24 Social History None recorded. Functional Status [...] SNOMED-CT Code Diagnosis ICD10 Code Diagnosis Note [id number] Shawanda Lopez MD [facility] Primary Care [facility] [address] [place] [address] 01/13/2024 11:29:26 01/13/2024 12:07:13 Adult health examination 886061062 Z00.00 Encouraged fresh fruits and veggies-me d [...] obtained Screening for malignant neoplasm of colon 215084748 Z12.11 Health Concerns Section Related Observation LastModified by Organization Detai ls LastModified Time None Recorded Concern Status LastModified by Organization Details LastModified Time None Recorded Advance Directives Directive None Recorded Payers Insurance Date Sequence Insurance Name Policy Number Policy Dickey Covered Member ID Dickey Member ID Guarantor Name 01/13/2024 1 [place] [id number] Hilary Almanzar [id number] Hilary Almanzar OBGyn Episode No OBEpisode recorded.
--- OUTSIDE RECORDS SUMMARY | 2025-05-08 09:20 | XMS_ITS | Clinical Summary ---
Author Organization [facility] Address [address] [place] [address] Care Team Providers Care Well Treatment Offsider Name Role Phone Unavailable Primary Care Provider Unavailabl e Source Comments [facility],non-owned Affiliates and Associated Physician Practices is amultiple site organization consisting of ambulatory clinics and hospital sitesin [place], [place], [place] and [place]. This disclosure is being madepursuant to the Care Everywhere program and may not contain all information available regarding this patient. Last updated 18.[facility] Allergies Active Allergy Reactions Criticality Noted Date Comments Penicillins 08/21/2008 Medications * Be aware that medications may not be up to date on this document. Alwaysverify current medications with the patient. metroNIDAZOLE (FLAGYL) 500 MG tabletIndicatio ns:BV (bacterial vaginosis) Take 1 Tab by mouth 2 times daily. 14 Tab 0 1 Active etonogestrel-et hinyl estradiol (NUVARING) 0.12-0.015 MG/24HR vaginal ring Insert 1 Device into the vagina every 21 days. Apply vaginally for 21 -= 30 days then take out for 7 days before placing another one. 1 Each 11 1 Active Active Problems Problem Noted Date Diagnosed Date Other nonspecific abnormal finding 08/21/2008 Immunizations Immunization Administration Dates Next Due INFLUENZA VACCINE, QUADR. 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 Gender Identity Not on file Sexual Orientation [...] of 3 - 19+ 3-dose series) 1994 COVID-19 VACCINE ( - 2023-2 5 season) 2024 DEPRESSION SCREENING 10/11/2024 PNEUMOCOCCAL VACCINE 50+ (1 of 1 - PCV) 2025 ZOSTER VACCINE (1 of 2) 2025 INFLUENZA VACCINE (#1) 2025 08/06/2019 HIV SCREENING Completed 04/21/2011 HIB VACCINE Aged Out No longer eligi ble based on patient's age to complete this topic HPV VACCINE Aged Out No longer eligi ble based on patient's age to complete this topic MENINGOCOCCAL (Group B) VACC INE SHARED DECISION-MAKING Aged Out No longer eligibl e based on patient's age to complete this topic MENINGOCOCCAL GROUPS A/C/Y/W VACCINE Aged Out No longer eligible b ased on patient's age to complete this topic Procedures Procedure Name Priority Date/Time Associated Diagnosis Comments HIV-1 HIV-2 ANTIBODY Routine 04/21/2011 8:41 AM CDT Screening for STDs (sexually transmitted diseases) from Last 3 Months or Most Recently [...] 5:00 PM CDT Narrative Resulting Agency Comment [facility] [address] [facility] [id number] Leanne Zepeda MD LAB - CHEMISTRY ORDERABL ES Final Result [facility] ACCOUNT BILL [address] [place] [address] from Last 3 Months or Most Recently Relevant to Health Maintenance Insurance [facility]
== END 2025-05-08 09:10 | disposition home or self-care (01) ==
LOC: ANHIMG 09:11
PROVIDERS: PCP Internal Medicine; Visit Provider Clinical Nurse Specialist
DX: Z12.31 Encounter for screening mammogram for malignant neoplasm of breast (principal)
CPT/HCPCS: 77063; 77067